=== PATIENT | male | born 1955 | race Caucasian/White ===

== ENCOUNTER 2019-03-13 06:41 | Day surgery (SDC) | payer BC ==
[2019-03-13] MEDS ORDERED: Sodium Chloride 0.9% 1,000 ML IV SCH (07:15)
[2019-03-13] MEDS ORDERED: Propofol 200 MG/20 ML SDV ONE (07:21)
[2019-03-13] MEDS ORDERED: Midazolam 1 MG/ML 2 ML SDV ONE (07:21)
[2019-03-13] MEDS ORDERED: fentaNYL 100 MCG/2 ML SDV ONE (07:21)
--- NOTE | 2019-03-14 07:49 | PROC ---
DATE OF PROCEDURE: 03/13/2019 SURGEON: Oswaldo Ziegler MD PROCEDURE: Colonoscopy. INDICATION: Screening. PREPROCEDURE DIAGNOSIS: Screening colonoscopy. POSTPROCEDURE DIAGNOSIS: Screening colonoscopy. DESCRIPTION OF PROCEDURE: Risks and goals of the procedure reviewed with the patient, and he gave informed consent to proceed. He was brought back to the endoscopy room. Sedation and monitoring provided by the Anesthesia Service. He was placed in a left lateral decubitus position. Time-out was held to confirm right patient, right site, right procedure. No safety concerns were noted. After adequate sedation was achieved, digital rectal exam was performed, remarkable for prostatic enlargement. No other palpable masses identified. The flexible colonoscope was placed and advanced out through the entire length of the colon to the cecum. Cecum was identified by the presence of the appendiceal orifice and ileocecal valve. Scope was then slowly withdrawn through the length of the colon out of the cecum through the ascending colon, transverse colon, descending colon, sigmoid colon and out into the rectum. No significant mucosal polyps, masses, or lesions were seen. The scope was retroflexed in the rectum and then withdrawn. No significant abnormalities were identified, and the procedure was otherwise completed without complication. He will be monitored in [facility] in outpatient area until fully recovered from IV sedation and then discharged to home. Oswaldo Ziegler MD /[id number]
== END 2019-03-13 09:54 | disposition home or self-care (01) ==
LOC: JP.SDS 06:41
PROVIDERS: ATTEND Hospitalist
DX: Z12.11 Encounter for screening for malignant neoplasm of colon (principal); K21.9 Gastro-esophageal reflux disease without esophagitis; K44.9 Diaphragmatic hernia without obstruction or gangrene; Z88.0 Allergy status to penicillin
CPT/HCPCS: 45378; J2250; J2704; J3010; J7030

== ENCOUNTER 2022-07-25 07:27 | Emergency (ER) | payer BC, MEDICARE ==
[2022-07-25 08:30] LABS: BASOPHILS PERCENT AUTO 0.7 % (0.1-1.3); EOSINOPHILS ABSOLUTE AUTO 0.09 K/uL (0.00-0.40); EOSINOPHILS PERCENT AUTO 3.2 % (0.0-5.4); HEMATOCRIT 38.4 % (38.4-49.7); HEMOGLOBIN 13.2 g/dL (12.9-16.9); LYMPHOCYTES ABSOLUTE AUTO 0.52 K/uL (0.8-3.3); LYMPHOCYTES PERCENT AUTO 18.2 % (11.4-47.7); MEAN CORPUSCULAR HEMOGLOBIN 32.5 pg (31.6-35.5); MEAN CORPUSCULAR HGB CONC 34.4 g/dL (31.6-35.5); MEAN CORPUSCULAR VOLUME 94.6 fL (81.4-99.0); MONOCYTES ABSOLUTE AUTO 0.35 K/uL (0.20-0.90); MONOCYTES PERCENT AUTO 12.3 % (3.3-12.6); NEUTROPHILS ABSOLUTE AUTO 1.87 K/uL (1.0-7.6); NEUTROPHILS PERCENT AUTO 65.6 % (40.0-78.1); PLATELET COUNT,PLT 111 K/uL (130-375); RED BLOOD CELL COUNT 4.06 M/uL (4.14-5.76); WHITE BLOOD CELL COUNT,WBC 2.9 K/uL (3.2-11.0)
[2022-07-25 08:34] LABS: BASOPHILS ABSOLUTE AUTO 0.02 K/uL (0.00-0.10)
[2022-07-25 08:50] LABS: ALANINE AMINOTRANSFERASE,ALT 47 U/L (12-78); ALBUMIN 3.5 g/dL (3.4-5.0); ALKALINE PHOSPHATASE 87 U/L (46-116); ANION GAP 6.6 mmol/L (5.0-14.0); ASPARTATE AMNIOTRANSFERASE,AST 46 U/L (15-37); BILIRUBIN TOTAL 1.1 mg/dL (0.2-1.0); BLOOD UREA NITROGEN,BUN 13 mg/dL (7-18); CARBON DIOXIDE,CO2 29 mmol/L (21-32); CHLORIDE,CL 104 mmol/L (100-108); CREATININE 1.1 mg/dL (0.8-1.3); EST CRCL DRUG DOSING (CG) 59.61 mL/min; ESTIMATED GFR 74 mL/min (>60); GLUCOSE RANDOM 99 mg/dL (74-106); POTASSIUM,K 4.2 mmol/L (3.6-5.2); PROTEIN TOTAL,TP 7.1 g/dL (6.4-8.2); SODIUM,NA 140 mmol/L (140-148)
== END 2022-07-25 09:23 | disposition home or self-care (01) ==
LOC: JP.ED 07:27
DX: A79.82 Anaplasmosis [A. phagocytophilum] (principal); Z88.0 Allergy status to penicillin; J45.909 Unspecified asthma, uncomplicated
CPT/HCPCS: 36415; 80053; 85025; 86140; 99282